=== PATIENT | male | born 1940 | race Caucasian/White ===

== ENCOUNTER 2017-04-26 09:24 | Emergency (ER) | payer OTHER ==
[~2017-04-26] VITALS: Ht 177.8 cm; Wt 81.0 kg
[2017-04-26] MEDS ORDERED: ONDA4TAB9 SL (10:25)
[2017-04-26] MEDS ORDERED: diphenhydrAMINE 25 MG/10 ML UD oral solution PO ONE (10:25)
[2017-04-26] MEDS ORDERED: AZIT250T PO (10:25)
[2017-04-26 11:21] VITALS: BP 124/79
== END 2017-04-26 11:22 | disposition home or self-care (01) ==
LOC: ER 09:25
DX: R05 Cough (principal); I25.10 Atherosclerotic heart disease of native coronary artery without angina pectoris; E11.9 Type 2 diabetes mellitus without complications
CPT/HCPCS: 71045; 99283; Q0163